=== PATIENT | female | born 1940 | race Caucasian/White ===

== ENCOUNTER 2016-08-08 18:12 | Emergency (ER) | payer MEDICARE, OTHER ==
[2016-08-08] MEDS ORDERED: FAMOTIDINE 20 MG/50 ML IVPB 50 ML IVPB ONE ×2 (18:14→18:40)
[2016-08-08] MEDS ORDERED: SODIUM CHLORIDE 1,000 ML IV STA (18:14)
--- NOTE | 2016-08-08 18:14 | PDOC ---
History of Present Illness - General Chief Complaint: Tongue Swelling Stated Complaint: swelling Time Seen by Provider: 08/08/16 18:13 History Source: Patient Exam Limitations: No Limitations - History of Present Illness Initial Comments: 76 yo F history angioedema, multiple medication allergies presents with swollen tongue. She states that she called her PMD, who stated she should go straight to the ED. She denies any trouble breathing or swallowing. No sensation of swelling inside her throat. She has had prior similar symptoms in the past, while she was on an AIDE-inhibitor. No new meds. She has had prior workup for this in the past. Past History - Past Medical History Allergies/Adverse Reactions: Allergies Allergy/AdvReac Type Severity Reaction Status Date / Time lisinopril Allergy Severe Angioedema Verified 08/08/16 18:22 [email or web address] [From Myrbetriq] Allergy Severe Angioedema Verified 08/08/16 18:22 sulfamethoxazole Allergy Severe sweating Verified 08/08/16 18:22 [From Bactrim] and barely responsive trimethoprim [From Bactrim] Allergy Severe sweating Verified 08/08/16 18:22 and barely responsive amlodipine besylate AdvReac Headache Verified 08/08/16 18:22 [From Norvasc] plums Allergy Intermediate Angioedema Uncoded 08/08/16 18:22 Home Medications: Ambulatory Orders Diphenhydramine [Benadryl -] 100 mg PO ONCE PRN 08/08/16 Methylprednisolone [Medrol Dose Carlyle] 4 mg PO ASDIR #21 tablet 08/08/16 Metoprolol Tartrate 200 mg PO BID 08/08/16 Simvastatin 10 mg PO DAILY 08/08/16 Review of Systems - Review of Systems Able to Perform ROS?: Yes Comments:: GENERAL/CONSTITUTIONAL: No fever or chills. No weakness. HEAD, EYES, EARS, NOSE AND THROAT: No change in vision. No ear pain or discharge. No sore throat. +Tongue swelling. CARDIOVASCULAR: No chest pain or shortness of breath. RESPIRATORY: No cough, wheezing, or hemoptysis. GASTROINTESTINAL: No nausea, vomiting, diarrhea or constipation. GENITOURINARY: No dysuria, frequency, or change in urination. MUSCULOSKELETAL: No joint or muscle swelling or pain. No neck or back pain. SKIN: No rash NEUROLOGIC: No headache, vertigo, loss of consciousness, or change in strength/ sensation. ENDOCRINE: No increased thirst. No abnormal weight change. HEMATOLOGIC/LYMPHATIC: No anemia, easy bleeding, or history of blood clots. ALLERGIC/IMMUNOLOGIC: No hives or skin allergy. *Physical Exam - Physical Exam Comments: GENERAL: Awake, alert, and fully oriented, in no acute distress HEAD: No signs of trauma EYES: PERRLA, EOMI, sclera anicteric, conjunctiva clear ENT: Auricles normal inspection, hearing grossly normal, nares patent, oropharynx clear without exudates. R half of tongue edematous, but soft. Slight lisp with phonation. Moist mucosa NECK: Normal ROM, supple, no lymphadenopathy, JVD, or masses LUNGS: Breath sounds equal, clear to auscultation bilaterally. No wheezes, and no crackles HEART: Regular rate and rhythm, normal S1 and S2, no murmurs, rubs or gallops ABDOMEN: Soft, nontender, normoactive bowel sounds. No guarding, no rebound. No masses EXTREMITIES: Normal range of motion, no edema. No clubbing or cyanosis. No cords , erythema, or tenderness NEUROLOGICAL: Cranial nerves II through XII grossly intact. Normal speech, normal gait SKIN: Warm, Dry, normal turgor, no rashes or lesions noted. ED Treatment Course - LABORATORY CBC & Chemistry Diagram: 08/08/16 18:21 08/08/16 18:21 Medical Decision Making - Medical Decision Making 08/08/16 19:[address] Brown. Recently arrived in ED, with angioedema to R side of tongue. She took benadryl 100 mg at home (I recommended that she just use 50 mg in future). I have given solu-medrol and pepcid. Her symptoms are slightly better at this point, but her tongue is still swollen. Will require further monitoring in the ED for airway. *DC/Admit/Observation/Transfer Diagnosis at time of Disposition: Angioedema Qualifiers: Encounter type: initial encounter Qualified Code(s): T78.3XXA - Angioneurotic edema, initial encounter - Discharge Dispostion Disposition: HOME Condition at time of disposition: Stable - Prescriptions Prescriptions: Methylprednisolone [Medrol Dose Carlyle] 4 mg PO ASDIR #21 tablet - Referrals Referrals: Clifford Alvarenga MD [Staff Physician] - 24 hours - Patient Instructions Printed Discharge Instructions: DI for Angioedema Additional Instructions: medrol dose carlyle, begin taper tomorrow AM Benadryl as needed keep head elevated tonight Followup with Dr Alvarenga tomorrow as discussed Return to ER immediately if you have worsening tongue swelling,difficulty swallowing or breathing
[2016-08-08] MEDS ORDERED: methylPREDNISolone NA SUCC 125 MG/2 ML VIAL IVPB ONE (18:24)
[2016-08-08] MEDS ORDERED: methylPREDNISolone NA SUCC 125 MG/2 ML VIAL ONE (18:40)
[2016-08-08 18:54] VITALS: TEMP 98.3; BMI 27.4
[2016-08-08 18:54] LABS: BASOPHIL 2.2 % (0-2.0); EOSINOPHIL 3.8 % (0-4.5); MCH 30.4 pg (25.7-33.7); MCHC 33.4 g/dl (32.0-36.0); MEAN CELL VOLUME 91.1 fl (80-96); MEAN PLT VOLUME 10.1 fl (7.5-11.1); NEUTROPHILS 56.5 % (42.8-82.8); PLATELET COUNT 213 K/MM3 (134-434); RDW 13.3 % (11.6-15.6); WHITE BLOOD COUNT 8.7 K/mm3 (4.0-10.0)
[2016-08-08 19:06] LABS: ALBUMIN 4.3 g/dl (3.5-5.0); ALK PHOS 107 U/L (32-92); ANION GAP 10 (8-16); BILIRUBIN,TOTAL 0.9 mg/dl (0.2-1.0); CALCIUM 9.4 mg/dl (8.4-10.2); CO2 26 mmol/L (22-28); CREATININE 0.8 mg/dl (0.6-1.3); GLUCOSE,RANDOM 94 mg/dl (74-106); SGOT/AST 29 U/L (10-42); SGPT/ALT 21 U/L (10-40); TOT PROT 7.5 g/dl (6.4-8.3)
--- NOTE | 2016-08-08 19:24 | PDOC ---
*Physical Exam - Vital Signs Last Vital Signs Temp Pulse Resp BP Pulse Ox 98.3 F 65 20 158/92 97 08/08/16 18:13 08/08/16 18:13 08/08/16 18:13 08/08/16 18:13 08/08/16 18:13 ED Treatment Course - LABORATORY CBC & Chemistry Diagram: 08/08/16 18:21 08/08/16 18:21 - ADDITIONAL ORDERS Additional order review: Laboratory Results 08/08/16 18:21 Sodium 137 Potassium 4.5 Chloride 101 Carbon Dioxide 26 Anion Gap 10 BUN 25 H Creatinine 0.8 Creat Clearance w eGFR > 60 Random Glucose 94 Calcium 9.4 Total Bilirubin 0.9 D AST 29 ALT 21 D Alkaline Phosphatase 107 H Total Protein 7.5 Albumin 4.3 08/08/16 18:21 RBC 4.52 MCV 91.1 MCHC 33.4 RDW 13.3 MPV 10.1 Neutrophils % 56.5 Lymphocytes % 30.9 D Monocytes % 6.6 Eosinophils % 3.8 Basophils % 2.2 H D - Medications Given in the ED: ED Medications Discontinued Medications Generic Name Dose Route Start Last Admin Trade Name Freq PRN Reason Stop Dose Admin Diphenhydramine HCl 25 mg 08/08/16 18:14 08/08/16 18:56 Benadryl Injection - IVPUSH 08/08/16 18:15 Not Given ONCE ONE Famotidine/Sodium Chloride 50 mls @ 100 mls/hr 08/08/16 18:14 08/08/16 18:50 Pepcid 20 Mg Premixed Ivpb - IVPB 08/08/16 18:43 100 mls/hr ONCE ONE Administration Sodium Chloride 1,000 mls @ 1,000 mls/hr 08/08/16 18:14 08/08/16 18:50 Normal Saline - IV 08/08/16 19:13 1,000 mls/hr ASDIR STA Administration Methylprednisolone Sodium Succinate 125 mg 08/08/16 18:24 08/08/16 18:50 Solu-Medrol - IVPB 08/08/16 18:25 125 mg ONCE ONE Administration Progress Note - Progress Note Progress Note: Care of this patient received from Dr. Watkins. This 76-year-old woman presented with tongue swelling; patient took 100 mg diphenhydramine by mouth prior to presentation (patient states that she takes diphenhydramine frequently in "PM Advil/PM Tylenol and feels that she is tolerant to it. Therefore, she thought that increased dosage was warranted) While in the ER, patient received 125 mg of Solu-Medrol IV. After 2 hour observation period, patient states that she feels that her tongue is nearly back to baseline. On exam, no significant edema of the tongue or uvula present. There is no evidence of stridor or wheezing and lungs are clear on exam. Patient will be discharged with Medrol Dosepak prescription transmitted to her pharmacy. She will start this in the morning. She can continue to take Benadryl as needed at home. She should return to the ER immediately, however if she has any further swelling of her tongue or experiences difficulty swallowing/breathing. Patient has been instructed to follow-up with Dr. Alvarenga, her PMD, tomorrow. *DC/Admit/Observation/Transfer Diagnosis at time of Disposition: Angioedema Qualifiers: Encounter type: initial encounter Qualified Code(s): T78.3XXA - Angioneurotic edema, initial encounter - Discharge Dispostion Disposition: HOME Condition at time of disposition: Stable - Prescriptions Prescriptions: Methylprednisolone [Medrol Dose Carlyle] 4 mg PO ASDIR #21 tablet - Referrals Referrals: Clifford Alvarenga MD [Staff Physician] - 24 hours - Patient Instructions Printed Discharge Instructions: DI for Angioedema Additional Instructions: medrol dose carlyle, begin taper tomorrow AM Benadryl as needed keep head elevated tonight Followup with Dr Alvarenga tomorrow as discussed Return to ER immediately if you have worsening tongue swelling,difficulty swallowing or breathing - Post Discharge Activity
[2016-08-08 20:41] VITALS: BP 156/110; PULSE 69
[2016-08-08] MEDS ORDERED: dilTIAZem HCL 30 MG TABLET (FP) ONE (20:44)
[2016-08-08] MEDS ORDERED: dilTIAZem HCL 60 MG TABLET (FP) PO ONE (21:24)
== END 2016-08-08 21:25 | disposition home or self-care (01) ==
LOC: FER 18:12
PROC: 3E033GC Introduction of Other Therapeutic Substance into Peripheral Vein, Percutaneous Approach (ICD-10-PCS; principal; 2016-08-08)
PROC: 3E0337Z Introduction of Electrolytic and Water Balance Substance into Peripheral Vein, Percutaneous Approach (ICD-10-PCS; 2016-08-08)
DX: T78.3XXA Angioneurotic edema, initial encounter (principal); Z91.09 Other allergy status, other than to drugs and biological substances
CPT/HCPCS: 36415; 80053; 85025; 96361; 96365; 96375; 99284-25